=== PATIENT | female | born 1945 | race Caucasian/White ===

== ENCOUNTER 2022-08-07 18:02 | Inpatient (IN) | payer MEDICARE, OTHER ==
--- NOTE | 2022-08-07 18:23 | ED ---
General Adult HPI - General Chief complaint: Psychiatric Symptoms Stated complaint: Mental Health Time Seen by Provider: 08/07/22 18:14 Source: patient, police, RN notes reviewed Mode of arrival: ambulatory Limitations: no limitations - History of Present Illness Initial comments: Patient is a pleasant 77-year-old female presenting to emergency Department for mental health evaluation. Patient comes in with vice squad police officer escort. Patient states she feels fine and does not feel she should be here. Patient states she has been taking her medicine and did see her psychiatrist as recently as yesterday. Patient admits to being agitated with problems with her daughter. Patient does feel her daughter stole $40,000 from her and is trying to steal her identity. Patient also is upset that her son-in-law has locked her out of the house and that he can get in there whenever he wants to. - Related Data Allergies Allergy/AdvReac Type Severity Reaction Status Date / Time azithromycin [From Zithromax] Allergy Diarrhea Verified 08/07/22 18:11 Review of Systems ROS Statement: Those systems with pertinent positive or pertinent negative responses have been documented in the HPI. ROS Other: All systems not noted in ROS Statement are negative. Constitutional: Denies: fever Eyes: Denies: eye pain ENT: Denies: ear pain Respiratory: Denies: cough Cardiovascular: Denies: chest pain Endocrine: Denies: fatigue Gastrointestinal: Denies: abdominal pain Genitourinary: Denies: urgency Psychiatric: Denies: auditory hallucinations, visual hallucinations, homicidal thoughts, suicidal thoughts Past Medical History Past Medical History: Hypertension Additional Past Medical History / Comment(s): chronic back pain History of Any Multi-Drug Resistant Organisms: None Reported Past Surgical History: Back Surgery Past Psychological History: Anxiety, Depression Smoking Status: Never smoker Past Alcohol Use History: None Reported Past Drug Use History: None Reported General Exam Limitations: no limitations General appearance: alert, in no apparent distress Head exam: Present: normocephalic Eye exam: Present: normal appearance Neck exam: Present: normal inspection Respiratory exam: Present: normal lung sounds bilaterally Cardiovascular Exam: Present: tachycardia Extremities exam: Present: normal inspection Neurological exam: Present: alert Psychiatric exam: Present: manic (Slightly) Expanded Focused psych exam: Present: flight of ideas Skin exam: Present: normal color Course Vital Signs 08/07/22 18:07 Temperature 98.3 F Pulse Rate 111 H Respiratory 20 Rate Blood Pressure 171/121 Medical Decision Making - Medical Decision Making Was pt. sent in by a medical professional or institution ([facility], [employer], urgent care, hospital, or custodial...) When possible be specific @ -No Did you speak to anyone other than the patient for history (EMS, parent, family, police, friend...)? What history was obtained from this source @ -No Did you review nursing and triage notes (agree or disagree)? Why? @ -I reviewed and agree with nursing and triage notes Were old charts reviewed (outside hosp., previous admission, EMS record, old EKG, old radiological studies, urgent care reports/EKG's, custodial records)? Report findings @ -No old charts were reviewed Differential Diagnosis (chest pain, altered mental status, abdominal pain women, abdominal pain men, vaginal bleeding, weakness, fever, dyspnea, syncope, headache, dizziness, GI bleed, back pain, seizure, CVA, palpatations, mental health)? @ -not applicable EKG interpreted by me (3pts min.). @ -As above X-rays interpreted by me (1pt min.). @ -None done CT interpreted by me (1pt min.). @ -None done U/S interpreted by me (1pt. min.). @ -None done What testing was considered but not performed or refused? (CT, X-rays, U/S, labs)? Why? @ -None What meds were considered but not given or refused? Why? @ -None Did you discuss the management of the patient with other professionals (professionals i.e. [facility], [employer] INSTALLER, lab, RT, psych nurse, renal social worker, oral surgery assistant, teacher, landcare officer, special education case manager)? Give summary @ -I did speak with psychiatric nurse and patient will transfer for psychiatric placement. Was smoking cessation discussed for >3mins.? @ -No Was critical care preformed (if so, how long)? @ -No Were there social determinants of health that impacted care today? How? (Homelessness, low income, unemployed, alcoholism, drug addiction, transpo rtation, low edu. Level, literacy, decrease access to med. care, care home, rehab)? @ -No Was there de-escalation of care discussed even if they declined (Discuss DNR or withdrawal of care, Hospice)? DNR status @ -No What co-morbidities impacted this encounter? (DM, HTN, Smoking, COPD, CAD, Cancer, CVA, ARF, Chemo, Hep., AIDS, mental health diagnosis, sleep apnea, morbid obesity)? @ -None Was patient admitted / discharged? Hospital course, mention meds given and route, prescriptions, significant lab abnormalities, going to OR and other pertinent info. @ -Patient has demanded for hearing and will be transferred. Positive clinical certificate completed. Undiagnosed new problem with uncertain prognosis? @ -No Drug Therapy requiring intensive monitoring for toxicity (Heparin, Nitro, Insulin, Cardizem)? @ -No Were any procedures done? @ -No Diagnosis/symptom? @ -Psychosis Acute, or Chronic, or Acute on Chronic? @ -Acute on chronic Uncomplicated (without systemic symptoms) or Complicated (systemic symptoms)? @ -default Side effects of treatment? @ -No Exacerbation, Progression, or Severe Exacerbation? @ -No Poses a threat to life or bodily function? How? (Chest pain, USA, ND, pneumonia, PE, COPD, DKA, ARF, appy, cholecystitis, CVA, Diverticulitis, Homicidal, Suicidal, threat to staff... and all critical care pts) @ -No Disposition Clinical Impression: Psychosis Disposition: TRANSFER TO PSYCH HOSP/UNIT Condition: Stable Is patient prescribed a controlled substance at d/c from ED?: No Referrals: Gilbert Gordillo MD [Primary Care Provider] - 1-2 days Time of Disposition: 18:54
[2022-08-07 19:24] LABS: Amphetamine Screen,Urine Not Detected (NotDetected); Barbiturate Screen,Urine Not Detected (NotDetected); Benzodiazepines Screen,Urine Detected (NotDetected); Cocaine Screen,Urine Not Detected (NotDetected); Methadone Screen, Urine Not Detected (NotDetected); Opiate Screen,Urine Not Detected (NotDetected); Oxycodone Screen, Urine Not Detected (NotDetected); Phencyclidine Screen,Urine Not Detected (NotDetected); Tricyclic Antidepressant,Urine Not Detected (NotDetected); Urn Cannabinoid Scrn Detected (NotDetected)
[2022-08-07] MEDS ORDERED: diazePAM 5 MG TAB PO STA (20:12)
[2022-08-07 20:22] LABS: Basophils % (A) 0 %; Eosinophils # (A) 0.2 k/uL (0-0.7); Eosinophils % (A) 2 %; HGB 13.3 gm/dL (11.4-16.0); Lymphocytes # (A) 1.2 k/uL (1.0-4.8); Lymphocytes % (A) 18 %; MCH 28.3 pg (25.0-35.0); MCHC 32.6 g/dL (31.0-37.0); MCV 86.8 fL (80.0-100.0); Mean Platelet Volume 7.7; Monocytes # (A) 0.3 k/uL (0-1.0); Monocytes % (A) 5 %; Neutrophils # (A) 4.8 k/uL (1.3-7.7); Neutrophils % (A) 74 %; Platelet Count 361 k/uL (150-450); RBC 4.72 m/uL (3.80-5.40); RDW 13.9 % (11.5-15.5); WBC 6.6 k/uL (3.8-10.6)
[2022-08-07 20:34] LABS: African American GFR (CKD) >90 (>60 ml/min/1.73 sqM); Alcohol <10 mg/dL; Anion Gap 8 mmol/L; Blood Urea Nitrogen 21 mg/dL (7-17); Calcium 10.3 mg/dL (8.4-10.2); Carbon Dioxide 25 mmol/L (22-30); Chloride 105 mmol/L (98-107); Glucose 100 mg/dL (74-99); Non-African American GFR(CKD) 87 (>60 ml/min/1.73 sqM); Potassium 4.1 mmol/L (3.5-5.1); Sodium 138 mmol/L (137-145)
[2022-08-07] MEDS ORDERED: HALOPERIDOL LACTATE 5 MG/ML 1 ML VIAL IM PRN (22:05)
[2022-08-07] MEDS ORDERED: MAG HYDROX/AL HYDROX/SIMETH 30 ML CUP PO PRN (22:05)
[2022-08-07] MEDS ORDERED: MAGNESIUM HYDROXIDE 2,400 MG/10 ML CUP PO PRN (22:05)
[2022-08-07] MEDS ORDERED: LORazepam 2 MG/ML INJ IM PRN (22:09)
[2022-08-07] MEDS ORDERED: haloperidoL 5 MG TAB PO PRN (22:10)
[2022-08-07] MEDS: LORazepam 1 MG TAB PO PRN (22:49)
[2022-08-08] MEDS: LORazepam 1 MG TAB PO PRN ×2 (05:40→20:30)
[2022-08-08] MEDS: ACETAMINOPHEN TAB 325 MG TAB PO PRN ×2 (05:41→17:21)
[2022-08-08 06:09] VITALS: RESP 16; TEMP 97.9
[2022-08-08 12:30] LABS: Basophils % (A) 0 %; Eosinophils # (A) 0.1 k/uL (0-0.7); Eosinophils % (A) 2 %; HCT 39.7 % (34.0-46.0); HGB 12.9 gm/dL (11.4-16.0); Lymphocytes # (A) 0.9 k/uL (1.0-4.8); Lymphocytes % (A) 19 %; MCH 28.3 pg (25.0-35.0); MCHC 32.4 g/dL (31.0-37.0); MCV 87.2 fL (80.0-100.0); Mean Platelet Volume 7.3; Monocytes # (A) 0.2 k/uL (0-1.0); Monocytes % (A) 5 %; Neutrophils # (A) 3.2 k/uL (1.3-7.7); Neutrophils % (A) 73 %; Platelet Count 320 k/uL (150-450); RBC 4.55 m/uL (3.80-5.40); RDW 13.9 % (11.5-15.5); WBC 4.4 k/uL (3.8-10.6)
[2022-08-08 12:43] LABS: ALT 34 U/L (4-34); AST 32 U/L (14-36); African American GFR (CKD) >90 (>60 ml/min/1.73 sqM); Albumin 4.4 g/dL (3.5-5.0); Alkaline Phosphatase 91 U/L (38-126); Anion Gap 7 mmol/L; Blood Urea Nitrogen 18 mg/dL (7-17); Calcium 10.1 mg/dL (8.4-10.2); Carbon Dioxide 28 mmol/L (22-30); Chloride 104 mmol/L (98-107); Glucose 101 mg/dL (74-99); Non-African American GFR(CKD) 81 (>60 ml/min/1.73 sqM); Potassium 4.8 mmol/L (3.5-5.1); Sodium 139 mmol/L (137-145); Total Bilirubin 0.4 mg/dL (0.2-1.3); Total Protein 6.8 g/dL (6.3-8.2)
--- NOTE | 2022-08-08 13:30 | P.HP ---
Psychiatric H&P - . H&P Date: 08/08/22 History & Physical: Allergies Allergy/AdvReac Type Severity Reaction Status Date / Time azithromycin [From Zithromax] AdvReac Diarrhea Verified 08/07/22 19:42 Vital Signs Temp 97.9 F 08/08/22 06:08 Pulse 104 H 08/08/22 06:08 Resp 16 08/08/22 06:08 BP 160/79 08/08/22 06:08 Pulse Ox 98 08/08/22 06:08 FiO2 Intake & Output 08/07/22 08/08/22 08/08/22 18:59 06:59 18:59 Weight 54.431 kg 54.148 kg Laboratory Last Values WBC 4.4 k/uL (3.8-10.6) 08/08/22 11:55 RBC 4.55 m/uL (3.80-5.40) 08/08/22 11:55 Hgb 12.9 gm/dL (11.4-16.0) 08/08/22 11:55 Hct 39.7 % (34.0-46.0) 08/08/22 11:55 MCV 87.2 fL (80.0-100.0) 08/08/22 11:55 MCH 28.3 pg (25.0-35.0) 08/08/22 11:55 MCHC 32.4 g/dL (31.0-37.0) 08/08/22 11:55 RDW 13.9 % (11.5-15.5) 08/08/22 11:55 Plt Count 320 k/uL (150-450) 08/08/22 11:55 MPV 7.3 08/08/22 11:55 Neutrophils % 73 % 08/08/22 11:55 Lymphocytes % 19 % 08/08/22 11:55 Monocytes % 5 % 08/08/22 11:55 Eosinophils % 2 % 08/08/22 11:55 Basophils % 0 % 08/08/22 11:55 Neutrophils # 3.2 k/uL (1.3-7.7) 08/08/22 11:55 Lymphocytes # 0.9 k/uL (1.0-4.8) L 08/08/22 11:55 Monocytes # 0.2 k/uL (0-1.0) 08/08/22 11:55 Eosinophils # 0.1 k/uL (0-0.7) 08/08/22 11:55 Basophils # 0.0 k/uL (0-0.2) 08/08/22 11:55 Sodium 139 mmol/L (137-145) 08/08/22 11:55 Potassium 4.8 mmol/L (3.5-5.1) 08/08/22 11:55 Chloride 104 mmol/L (98-107) 08/08/22 11:55 Carbon Dioxide 28 mmol/L (22-30) 08/08/22 11:55 Anion Gap 7 mmol/L 08/08/22 11:55 BUN 18 mg/dL (7-17) H 08/08/22 11:55 Creatinine 0.73 mg/dL (0.52-1.04) 08/08/22 11:55 Est GFR (CKD-EPI)AfAm >90 (>60 ml/min/1.73 sqM) 08/08/22 11:55 Est GFR (CKD-EPI)NonAf 81 (>60 ml/min/1.73 sqM) 08/08/22 11:55 Glucose 101 mg/dL (74-99) H 08/08/22 11:55 Calcium 10.1 mg/dL (8.4-10.2) 08/08/22 11:55 Total Bilirubin 0.4 mg/dL (0.2-1.3) 08/08/22 11:55 AST 32 U/L (14-36) 08/08/22 11:55 ALT 34 U/L (4-34) 08/08/22 11:55 Alkaline Phosphatase 91 U/L (38-126) 08/08/22 11:55 Total Protein 6.8 g/dL (6.3-8.2) 08/08/22 11:55 Albumin 4.4 g/dL (3.5-5.0) 08/08/22 11:55 TSH 0.904 mIU/L (0.465-4.680) 08/08/22 11:55 Urine Opiates Screen Not Detected (NotDetected) 08/07/22 18:55 Ur Oxycodone Screen Not Detected (NotDetected) 08/07/22 18:55 Urine Methadone Screen Not Detected (NotDetected) 08/07/22 18:55 Ur Propoxyphene Screen Not Detected (NotDetected) 08/07/22 18:55 Ur Barbiturates Screen Not Detected (NotDetected) 08/07/22 18:55 U Tricyclic Antidepress Not Detected (NotDetected) 08/07/22 18:55 Ur Phencyclidine Scrn Not Detected (NotDetected) 08/07/22 18:55 Ur Amphetamines Screen Not Detected (NotDetected) 08/07/22 18:55 U Methamphetamines Scrn Not Detected (NotDetected) 08/07/22 18:55 U Benzodiazepines Scrn Detected (NotDetected) H 08/07/22 18:55 Urine Cocaine Screen Not Detected (NotDetected) 08/07/22 18:55 U Marijuana (THC) Screen Detected (NotDetected) H 08/07/22 18:55 Serum Alcohol <10 mg/dL 08/07/22 19:21 Coronavirus (PCR) Not Detected (Not Detectd) 08/07/22 19:21 08/08/22 13:29 IDENTIFYING DATA: Patient is a 77-year-old female, brought into the emergency department by police on a demand for hearing. HPI: Patient presented to the hospital in 08/07/2022, brought in by police for demand for a hearing. Reportedly, the police have been looking for this patient since 08/04/2022 however the patient was noted to "hiding" from them. As per EPS, the patient was endorsing significant paranoia towards her daughter and son-in-law.She reported concerns that they are trying to steal her identity and lock her out of her house. Patient is currently under deferral status that is over on 09/14/2022. There is a report she is nonadherent with treatment and her medications. Upon evaluation by this provider, the patient maintains that she has been following with treatment and adherent with her medications. The patient does produce a prescription signed by Dr Faisal Carlos dated on 08/06/2022 that she does not require inpatient psychiatric admission and that she is stable. This provider confirms with Dr Carlos's office that the patient was indeed present for her psychiatric outpatient appointment on 08/06/2022. The patient is vehemently denying any suicidal or homicidal ideation, intention, and/or plan. She is vehemently denying any auditory or visual hallucinations. She expresses significant paranoia towards her daughter and son-in-law and reports various examples of how they are attempting to steal her money, her identity, and limit her ability to challenge them. She expresses she has been threatened with inpatient psychiatric hospitalization from her daughter on mulitple occasions. In regards to psychotic symptoms, the patient does report concerns for surveillance of her activities and phone by her daughter. She does express concern about her phone possibly being bugged. However, the patient is not endorsing any other bizarre thought content outside of the relationship with her daughter and son-in-law. She reports no thought insertion, thought deletion, thought projection, magical thinking, ideas of reference, or other delusional themes. 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 This provider left a message with Dr Faisal Carlos's office ([phone]) for a call back. The patient is in agreement with any treatment recommendations by this provider. She is agreeable to starting low dose zyprexa. PAST PSYCHIATRIC HISTORY: Patient states that she has been diagnosed with depression and anxiety. Patient reports 3-4 inpatient psychiatric hospitalizations that started over the past 1 year. She follows outpatient with Dr Faisal Carlos. Patient denies any history of suicide attempts in the past. Her home medications include Valium, pristiq, and trazodone. She reports no other medication trials. PMH: Past Medical History: Hypertension Additional Past Medical History / Comment(s): chronic back pain History of Any Multi-Drug Resistant Organisms: None Reported Past Surgical History: Back Surgery Past Psychological History: Anxiety, Depression Smoking Status: Never smoker Past Alcohol Use History: None Reported Past Drug Use History: None Reported ALLERGIES: azithromycin CHEMICAL DEPENDENCY HISTORY: Patient denies any tobacco, alcohol, marijuana, or illicit drug use. FAMILY PSYCHIATRIC/SUBSTANCE USE HISTORY: No reported family psychiatric history. SOCIAL HISTORY: Patient is , retired, and occasionally works breeding [employer]. She is currently a resident of [place], [place]. MENTAL STATUS EXAM: General Appearance: Patient appears to be stated age is alert, directable, and attempts to cooperate. Patient appears to have fair hygiene and grooming. Dyed pink hair, tattoos along right arm. Behavior: Patient is seated without any agitated behavior. Mildly elevated psychomotor activity. Speech: Patient's speech is hyperverbal but interruptible. Mood/Affect: Patient reports their mood is "upset. I don't need to be in here." Affect is expansive. Suicidality/Homicidality: Patient denies any suicidal or homicidal ideation. Perceptions: Patient denies any visual hallucinations and denies any auditory hallucinations Though content/process: Paranoid and persecutory delusions mainly fixated on daughter. Memory and concentration: AOX3, grossly intact for the purposes of this session. Can spell "WORLD" backwards Judgment and insight: Fair STRENGTHS/WEAKNESSES: Strength is that the patient is in good health, is very active, and future oriented. Weakness is that the patient has somewhat limited insight. INTELLECT: average IMPRESSIONS: Delusional Disorder, persecutory type PLAN: -Patient is admitted under involuntary admission on a black pickler order. -Medications : Continue Pristiq 100 mg daily for depression/anxiety Trazodone 50 mg at bedtime for insomnia Start Zyprexa 2.5 mg twice daily for delusional disorder. -B12, folate, syphillis testing ordered. -Ativan Haldol PRN for agitation/aggression -Patient was informed of the risks, benefits and side effects of the medication and patient verbally consented to taking the medications. -Internal Medicine consult to perform medical evaluation and physical. -SW on board for discharge planning. Encourage patient to participate in groups to work on coping skills. 08/08/22 13:29
[2022-08-08] MEDS: OLANZapine 2.5 MG TAB PO SCH (20:29)
[2022-08-08] MEDS ORDERED: traZODone HCL 50 MG TAB PO SCH (21:00)
--- NOTE | 2022-08-09 01:32 | P.CONS ---
History of Present Illness - Reason for Consult Consult date: 08/09/22 - History of Present Illness The patient is a 77-year-old female with a PMH of rheumatoid arthritis and pseudogout (not on medications for either) who was brought to the emergency room under police custody for psychiatric evaluation. The patient had reportedly been acting anxious and was concerned that her daughter was attempting to steal her identity. The patient was admitted to mental health unit where she was seen and evaluated. The patient states that she has been feeling well and her only complaint was right knee pain and swelling for which she normally uses a sleeve at home. She denied experiencing chest discomfort, shortness of breath, fever, chills, cough, nausea, vomiting, abdominal pain, diarrhea. EKG in the emergency room revealed sinus rhythm with left atrial enlargement and left axis deviation and 97 bpm. T evaluation was reviewed with Dr. Baker called 4.4, hemoglobin 12.9, platelets 320, sodium 139, potassium 4.8, BUN 18, creatinine 0.73, TSH 0.9, B12 586, and hemoglobin A1c 5.7. The patient denied alcohol, tobacco, or illicit substance use. Review of systems: Pertinent positives and negatives as discussed in HPI, a complete review of systems was performed and all other systems are negative. Physical examination: General: non toxic, no distress, appears at stated age, normal weight Derm: no unusual rashes/lesions, no unusual ecchymoses, warm, dry Head: atraumatic, normocephalic, symmetric Eyes: EOMI, no lid lag, anicteric sclera ENT: Nose and ears atraumatic, no thrush, no pharyngeal erythema Neck: trachea midline, supple Mouth: no lip lesion, mucus membranes moist Cardiovascular: S1S2 reg, no murmur, no edema Lungs: CTA bilateral, no rhonchi, no rales , no accessory muscle use Abdominal: soft, nontender to palpation, no guarding Ext: no gross muscle atrophy, no contractures, Neuro: No gross focal neuro deficits noted Psych: Alert, oriented, appropriate affect Assessment: Anxiety Plan: Defer management to primary psychiatry service Thank you for allowing us to participate in the care of this patient. We will follow peripherally. Do not hesitate to contact us with questions. Someone can be reached from the [facility] hospitalist group at all hours of the day at [phone]. Past Medical History Past Medical History: Hypertension Additional Past Medical History / Comment(s): chronic back pain History of Any Multi-Drug Resistant Organisms: None Reported Past Surgical History: Back Surgery Smoking Status: Never smoker Medications and Allergies Home Medications Medication Instructions Recorded Confirmed Type Desvenlafaxine Succinate [Pristiq] 100 mg PO DAILY 08/07/22 08/07/22 History diazePAM [Valium] 10 mg PO HS PRN 08/07/22 08/07/22 History traZODone HCL [Desyrel] 50 - 100 mg PO HS 08/07/22 08/07/22 History Allergies Allergy/AdvReac Type Severity Reaction Status Date / Time azithromycin [From Zithromax] AdvReac Diarrhea Verified 08/07/22 19:42 Physical Exam Vitals: Vital Signs Temp Pulse Resp BP Pulse Ox 08/08/22 06:08 97.9 F 104 H 16 160/79 98 Intake and Output 08/08/22 08/08/22 08/09/22 14:59 22:59 06:59 Other: Weight 54.148 kg Results CBC & Chem 7: 08/08/22 11:55 08/08/22 11:55 Labs: Abnormal Lab Results - Last 24 Hours (Table) 08/08/22 08/08/22 Range/Units 11:55 11:55 Lymphocytes # 0.9 L (1.0-4.8) k/uL BUN 18 H (7-17) mg/dL Glucose 101 H (74-99) mg/dL
[2022-08-09 07:18] VITALS: BP 164/77; PULSE 77
[2022-08-09] MEDS: OLANZapine 2.5 MG TAB PO SCH (08:04)
[2022-08-09] MEDS ORDERED: DESVENLAFAXINE SUCCINATE 50 MG TAB.ER.24H PO SCH (09:00)
[2022-08-09 11:33] LABS: Chol/HDL Ratio 3.63 Ratio; LDL Cholesterol,Calculated 143.1 mg/dL (0.0-131.0)
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
[2022-08-09] MEDS: ACETAMINOPHEN TAB 325 MG TAB PO PRN (16:21)
== END 2022-08-09 18:44 | disposition home or self-care (01) | DRG 885 ==
LOC: EC 18:02 → 3MHU 21:59
PROVIDERS: ADMIT Psychiatry & Neurology Psychiatry; ATTEND Psychiatry & Neurology Psychiatry
DX: F22 Delusional disorders (principal); T76.91XA Unspecified adult maltreatment, suspected, initial encounter; I10 Essential (primary) hypertension; F41.9 Anxiety disorder, unspecified; F32.A Depression, unspecified; M06.9 Rheumatoid arthritis, unspecified; G89.29 Other chronic pain; M54.9 Dorsalgia, unspecified; R22.41 Localized swelling, mass and lump, right lower limb; M11.20 Other chondrocalcinosis, unspecified site; Z20.822 Contact with and (suspected) exposure to COVID-19; G47.00 Insomnia, unspecified; Z28.310 Unvaccinated for COVID-19; Z79.899 Other long term (current) drug therapy; Z63.8 Other specified problems related to primary support group; Z88.1 Allergy status to other antibiotic agents
CPT/HCPCS: 36415; 80048; 80053; 80061; 80306; 80320; 82075; 82607; 82746; 83036; 84443; 85025; 86780; 87635; 93005; 99285